=== PATIENT | male | born 1975 | race Caucasian/White ===

== ENCOUNTER → 2018-11-30 | Day surgery (SDC) | payer BC ==
--- NOTE | 2018-11-30 11:29 | RAD REPORT ---
EXAM DESCRIPTION: US - Guided FNA Non Breast - 11/30/2018 10:59 am CLINICAL HISTORY: E04.2 COMPARISON: No comparisons FINDINGS: Preoperative diagnosis: Left thyroid nodule. Post operative diagnosis: Same. Conscious Sedation: None Fluoroscopy time: None Contrast used: None Estimated blood loss: Minimal Specimens:5 x 25 gauge FNA samples The left neck was prepped and draped in the usual sterile fashion. 1% lidocaine was infiltrated into the subcutaneous tissues for local anesthesia. Real time ultrasound scanning of the left neck demonst rated echogenic 2.8 x 1.7 x 1.6 cm nodule. Under ultrasound guidance, using 25 gauge FNA needles, 5 s pecimens were obtained of this lesion and sent to pathology for evaluation. There were no complicatio ns. IMPRESSION: Successful ultrasound-guided FNA procedure left thyroid nodule.
== END ==
LOC: FNA 10:08
PROVIDERS: ATTEND Nurse Practitioner Family
PROC: 0G9K3ZX Drainage of Thyroid Gland, Percutaneous Approach, Diagnostic (ICD-10-PCS; principal; 2018-11-30)
PROC: BG44ZZZ Ultrasonography of Thyroid Gland (ICD-10-PCS; 2018-11-30)
DX: E04.2 Nontoxic multinodular goiter (principal)
CPT/HCPCS: 88162